=== PATIENT | female | born 1965 | race Caucasian/White ===

== ENCOUNTER 2021-12-26 14:37 | Outpatient (CLI) | payer OTHER, SELFPAY ==
--- NOTE | 2021-12-26 15:00 | CRLHL7_ITS ---
For Patients: As a result of the Century Cures Act, medical imaging exams and procedure reports are released immediately into your electronic medical record. You may view this report before your referring provider. If you have questions, please contact your health care provider. BILATERAL SCREENING MAMMOGRAM WITH COMPUTER-AIDED DETECTION TECHNIQUE: CC and MLO views were obtained. These mammographic images have been obtained using full-field digital technique. These mammographic images were interpreted with the benefit of computer-aided detection. COMPARISON FILM: 11/15/20, 11/01/19, 10/04/18. FINDINGS: There are scattered areas of fibroglandular density IMPRESSION: There is no radiographic evidence for malignancy. ASSESSMENT: BI-RADS Category 1: Negative RECOMMENDATION: Routine screening mammogram in 1 year. A lay language report of this examination will be provided to the patient. Sean Saha M.D. Diagnostic Radiologist [email or web address] BRYAN/Dictated by: Sean Saha MD @ 12/29/2021 8:37:00 AM (Electronically Signed)
== END 2021-12-26 14:38 | disposition home or self-care (01) ==
LOC: MAMMO 14:38
PROVIDERS: PCP Family Medicine; Visit Provider Physician Assistant Medical
DX: Z12.31 Encounter for screening mammogram for malignant neoplasm of breast (principal)
CPT/HCPCS: 77067

== ENCOUNTER 2022-04-23 08:19 | Outpatient (CLI) | payer OTHER, SELFPAY ==
[2022-04-23 15:01] LABS: Albumin* 4.7 g/dL (3.3-5.0); Chloride* 106 mmol/L (96-114); Potassium* 3.8 mmol/L (3.6-5.1)
[2022-04-23 15:03] LABS: Carbon Dioxide* 26 mmol/L (20-32); Cholesterol* 173 mg/dL (90-199); Creatinine* 0.6 mg/dL (0.5-1.5); Estimated Glomerular Filt Rate 105 ml/min
[2022-04-23 15:04] LABS: Aspartate Amino Transferase* 33 U/L (12-35); Bilirubin Total* 1.9 mg/dL (0.1-1.5); Blood Urea Nitrogen* 19 mg/dL (7-30); Calcium* 9.8 mg/dL (8.4-10.6); Glucose* 139 mg/dL (60-115); Total Protein* 7.1 g/dL (6.0-8.3); Triglycerides* 178 mg/dL (40-149)
[2022-04-23 15:05] LABS: HDL Cholesterol* 36 mg/dL (>=50); LDL Cholesterol Calculated 101 mg/dL (<100)
[2022-04-23 15:07] LABS: Sodium* 140 mmol/L (135-149)
[2022-04-23 15:10] LABS: Alanine Aminotransferase* 27 U/L (4-35); Alkaline Phosphatase* 90 U/L (40-150)
[2022-04-23 15:55] LABS: Vitamin D 25 Hydroxy* 30 ng/mL (30-80)
[2022-04-23 16:26] LABS: Hepatitis C Virus Antibody* Negative (Negative)
== END 2022-04-23 08:20 | disposition home or self-care (01) ==
PROVIDERS: PCP Family Medicine; Visit Provider Family Medicine
DX: Z00.00 Encounter for general adult medical examination without abnormal findings (principal); E78.5 Hyperlipidemia, unspecified; R73.03 Prediabetes; Z86.39 Personal history of other endocrine, nutritional and metabolic disease; Z11.59 Encounter for screening for other viral diseases; Z83.49 Family history of other endocrine, nutritional and metabolic diseases
CPT/HCPCS: 80053; 80061; 82306; 84443; 86803

== ENCOUNTER 2022-08-17 13:21 | Outpatient (CLI) | payer OTHER, SELFPAY | END 2022-08-17 13:22 | disposition home or self-care (01) | PROVIDERS: Visit Provider Family Medicine | DX: R73.03 Prediabetes (principal); E78.5 Hyperlipidemia, unspecified; R59.0 Localized enlarged lymph nodes; E88.81 Metabolic syndrome and other insulin resistance; C85.80 Other specified types of non-Hodgkin lymphoma, unspecified site | CPT/HCPCS: 80053; 83615 ==

== ENCOUNTER 2022-08-20 07:00 | Outpatient (CLI) | payer OTHER, SELFPAY ==
--- NOTE | 2022-08-20 07:15 | CRLHL7_ITS ---
For Patients: As a result of the Century Cures Act, medical imaging exams and procedure reports are released immediately into your electronic medical record. You may view this report before your referring provider. If you have questions, please contact your health care provider. Indication: reactive lymph node, h/o lymphoma Technique: Grayscale and color Doppler ultrasound of the right posterior lateral neck soft tissues performed. Comparison: None Findings: There are 2 normal-appearing lymph nodes within the subcutaneous tissues measuring 9 x 5 x 8 millimeters and 4 x 3 x 6 millimeters. Normal internal vascularity and normal central fatty woodrow. Impression: Normal-appearing lymph nodes within the right posterior lateral neck soft tissues. Dictated by Sean Saha MD @ 08/20/2022 11:31:33 AM (Electronically Signed)
--- NOTE | 2022-08-21 12:09 | ONC.NURNOTE ---
Patient called office to ask to be scheduled to see oncology. She was informed that we would need her biopsy back, and proven to be lymphoma prior to seeing patient. She notes that they did not do a biopsy yesterday. Nursing told patient that it was discussed that this was to be done yesterday, and will call PCP office to find out next step for her. Checkout Supervisor looked up ultrasound and it said normal appearing lymph nodes. Checkout Supervisor left message for PCP to call patient with results and next step. [facility] will not be able to see patient without biopsy proven disease.
== END 2022-08-20 07:01 | disposition home or self-care (01) ==
LOC: US 07:01
PROVIDERS: PCP Family Medicine; Visit Provider Family Medicine
DX: C85.80 Other specified types of non-Hodgkin lymphoma, unspecified site (principal); R59.0 Localized enlarged lymph nodes
CPT/HCPCS: 76536

== ENCOUNTER 2022-09-28 12:36 | Outpatient (CLI) | payer OTHER, SELFPAY ==
--- NOTE | 2022-09-28 13:00 | CRLHL7_ITS ---
For Patients: As a result of the Century Cures Act, medical imaging exams and procedure reports are released immediately into your electronic medical record. You may view this report before your referring provider. If you have questions, please contact your health care provider. Indication: FOLLOW UP CERVICAL LYMPH NODE - ENLARGING LYMPH NODE, PT HX OF LYMPHOMA Technique: Grayscale and color Doppler ultrasound of the right side of the neck performed. Comparison: 08/20/2022 Findings: Several normal-appearing lymph nodes are present within the right side of the neck containing normal central fatty woodrow without hypoechoic cortical thickening. The largest lymph node measures 8 x 5 x 7 millimeters. There is no change compared to the prior exam. Impression: Stable subcentimeter right-sided lymph nodes. No indication for biopsy. Dictated by Sean Saha MD @ 09/28/2022 1:50:05 PM (Electronically Signed)
== END 2022-09-28 12:37 | disposition home or self-care (01) ==
LOC: US 12:37
PROVIDERS: PCP Family Medicine; Visit Provider Family Medicine
DX: C85.80 Other specified types of non-Hodgkin lymphoma, unspecified site (principal); R59.0 Localized enlarged lymph nodes
CPT/HCPCS: 76536

== ENCOUNTER 2023-01-07 09:54 | Outpatient (CLI) | payer OTHER, SELFPAY ==
--- NOTE | 2023-01-07 10:15 | CRLHL7_ITS ---
For Patients: As a result of the Century Cures Act, medical imaging exams and procedure reports are released immediately into your electronic medical record. You may view this report before your referring provider. If you have questions, please contact your health care provider. BILATERAL SCREENING MAMMOGRAM WITH COMPUTER-AIDED DETECTION TECHNIQUE: CC and MLO views were obtained. These mammographic images have been obtained using full-field digital technique. These mammographic images were interpreted with the benefit of computer-aided detection. COMPARISON FILM: 12/26/21, 11/15/20, 11/01/19. FINDINGS: There are scattered areas of fibroglandular density IMPRESSION: There is no radiographic evidence for malignancy. ASSESSMENT: BI-RADS Category 1: Negative RECOMMENDATION: Routine screening mammogram in 1 year. A lay language report of this examination will be provided to the patient. Sean Saha M.D. Diagnostic Radiologist [email or web address] ROSANGELA/monica Transcribed: 2:06 prafael anderson/Dictated by: Sean Saha MD @ 01/07/2023 11:26:00 AM (Electronically Signed)
== END 2023-01-07 09:55 | disposition home or self-care (01) ==
LOC: MAMMO 09:56
PROVIDERS: PCP Family Medicine; Visit Provider Family Medicine
DX: Z12.31 Encounter for screening mammogram for malignant neoplasm of breast (principal)
CPT/HCPCS: 77067

== ENCOUNTER 2023-09-08 13:27 | Outpatient (CLI) | payer OTHER, SELFPAY ==
--- OUTSIDE RECORDS SUMMARY | 2023-09-08 13:32 | XMS_ITS | Clinical Summary ---
Author Organization [facility] Address [place], [place] [address] Care Team Providers Care Student Ministry Pastor Name Role Phone Aquiles [facility] Primary Care Provider Unavailabl e Allergies No known active allergies Medications Medication Sig Dispensed Refills Start Date End Date Status ALBUTEROL SULFATE HFA 90 MCG/ACTUATION AEROSOL INHALER inhale 1 puff by inhalation route every 4-6 hours as needed 1 08/29/2007 Active omeprazole (PRILOSEC) 20 mg capsule Take 20 mg by mouth once daily before a meal. Active fluticasone (50 mcg per actuation) nasal solution (FLONASE) Inhale 50 Sprays in the nostril(s) once daily. 07/22/2016 Active HYDROcodone-acetamin ophen, 5-325 mg, (NORCO) per tablet Take 5 tablets by mouth every 4 hours if needed 08/06/2016 Active lovastatin (MEVACOR) 20 mg tablet Take 20 mg by mouth once daily. 06/12/2016 Active cholestyramine-sucro se 4 G per scoop (QUESTRAN) 4 gram powder Take 4 g by mouth once daily. 06/30/2016 Active Active Problems Problem Noted Date Diagnosed Date Unspecified asthma(493.90) 08/07/2005 ALLERGIC CONJUNCTIVITIS 08/01/2002 CALCULUS, URETER 01/18/2001 INFECTION, URINARY TRACT NOS 01/18/2001 RHINITIS, ALLERGIC NOS 09/02/2000 HEADACHE 09/02/2000 Resolved Problems Problem Noted Date Diagnosed Date Resolved Date ASTHMA NOS 09/02/2000 08/07/2005 Immunizations Name Administration Dates Next Due Td (Age >=7 Years) 05/12/2002,09/16/1990 Family History Medical History Relation Name Comments Asthma Brother 1 Other Brother 2 Allergies Hypertension Father Other Father COPD Cancer Mother Angiosarcoma Asthma Sister 1 Other Sister 2 Allergies Other Sister 3 Renal calculi Relation Name Status Comments Brother 1 Brother 2 Father (Age 66) Unknown Mother (Age 61) Angiosarco ma Sister 1 Sister 2 Sister 3 Social History Tobacco Use Types Packs/Day Years Used Date Smoking Tobacco: Never Alcohol Use Standard Drinks/Week Comments Yes 0 (1 standard drink = 0.6 oz pur e alcohol) rare, 1/4 months Sex and Gender Information Value Date Recorded Sex Assigned at Not on file Gender Identity Not on file Sexual Orientation Not on file Obstetrics History Para Term AB IAB SAB Ectopic Multiple Livin g Live Births 3 3 3 0 0 0 0 0 3 Date Outcome GA Total Labor Labor/2nd/3rd Weight Sex Delivery Anes PTL Katt A1 A5 Name Cl in Term Term Term Last Filed Vital Signs Vital Sign Reading Time Taken Comments Blood Pressure 99/69 09/07/2016 1:45 PM CDT Pulse 73 09/07/2016 1:45 PM CDT Temperature 37.1 ??C (98.7 ??F) 08/10/2016 9:22 AM CD T Respiratory Rate 16 05/28/2010 5:15 PM TURBINE SUBASSEMBLER Oxygen Saturation 95% 05/28/2010 5:15 PM TURBINE SUBASSEMBLER Inhaled Oxygen Concentration - - Weight 66.3 kg (146 lb 3.2 oz) 09/07/2016 1:45 P M CDT Height 154.9 cm (5' 1) 09/07/2016 1:45 PM CDT Body Mass Index 27.62 09/07/2016 1:45 PM CDT Plan of Treatment Health Maintenance Due Date Last Done Comments Tdap 1976 Depression screening for age 12+ 1977 HIV for age 15-65 1980 Hepatitis C screening for ag e 18-79 07/22/1983 Pap test for age 21-65 12/27/2007 5, 12/26/2004, 11/28/2001 Colonoscopy through age 75 2010 Lipids for age 45-75 2010 01/02/2005 Mammogram for age 45-75 2010 10/19/2003 Tetanus booster 05/12/2012 05/12/2002, 09/16/1990 Zoster (shingles) series for age 50+ (1 of 2) 07/22/2015 BMI (ht and wt on same day) for age 18+ 09/07/2017 09/07/2016 COVID-19 vaccine series (2022-24 season) 2022 Influenza for age 50-64 12/19/2023 Pneumococcal series for age 6-64 Aged Out No longer eligible b ased on patient's age to complete this topic Medical Devices Implanted Type Area Manager Banquet Device Identifier Shelf Expiration Date Model / Serial / Lot Stent Prcflx [id number] Hydpls - [id number] Implanted:Qty: 1 on 08/19/2006 at [facility] Left: Ureter [facility] Urology [id number] / / [id number] Description:EXP Procedures Procedure Name Priority Date/Time Associated Diagnosis Comments LIPID PANEL Timed 01/02/2005 11:05 AM CDT GYNECOLOGICAL PANEL Timed 12/26/2004 1 2:00 PM CDT XR MAMMO BILATERAL DIAGNOSTIC (IA) Timed 10/19/2003 8:58 AM CDT RT BRST MASS from Last 3 Months or Most Recently Relevant to Health Maintenance Results * (ABNORMAL) LIPID PANEL (01/02/2005 11:05 AM CDT) CHOLESTEROL,TOTAL 179 110 - 199 mg/dL [facility] TRIGLYCERIDES 223(H) 40 - 149 mg/dL [facility] HDL CHOLESTEROL 34(L) >40 mg/dL [facility] CHOL/HDL RATIO 5.27(H) <4.51 [facility] LDL CHOLESTEROL 100 <131 mg/dL [facility] PATIENT STATUS Fasting [facility] 01/02/2005 11:0 5 AM CDT 01/02/2005 4:58 PM CDT Yoly Richey MD CHEMISTRY [facility] INTERNAL ZIP [address] [address] * GYNECOLOGICAL PANEL (12/26/2004 12:00 PM CDT) CYTOLOGY ??CYTOPATHOLOGY REPORT ??[facility] [address] [address] ? Status: Final Report ?[id number] ?? CLINICAL INFORMATION ?Reason for Visit ?: Routine ?LMP ? : 12-20-2004 ?Previous PAP Test ? : Yes ?Previous PAP Date ? : 09-02-2000 ?Previous PAP Dx ? : Negative ?Previous Colposcopy/Bx: None ?Hormone Usage ? : Not given ?Additional Data ? : Not given ?HPV Request ? : Reflex HPV test if PAP Dx ASCUS ?? SPECIMEN SOURCE ?: Cervical/vaginal thin, screening ?? SPECIMEN ADEQUACY ?: Satisfactory for evaluation Endocervical ?component present. ?? * ?? INTERPRETATION/RES ULT: ?Negative for intraepithelial lesion or malignancy. ?? * ?? Cytology 1st Screener : ??kek ?? Signed by: ? kek ?? NOTE: The Pap test is a screening technique, not a diagnostic ?? procedure. It is used primarily to screen for squamous cancers and ?? precursor lesions. Published studies have shown that it is subject to ?? both false negative and false positive results. The pap test should ?? not be used as the sole means to diagnose or exclude pre-malignant and ?? malignant lesions. ?? COLLECTED: 12/26/04 ?? ACCESSIONED: 12/31/04 ?? SIGNED: 01/07/05 [facility] 12/26/2004 12:0 0 PM CDT 12/31/2004 4:23 PM CDT Yoly Richey MD PATHOLOGY/CY TOLOGY [facility] INTERNAL ZIP [address] [address] [place] [address] * BC DIAGNOSTIC BILATERAL MAMMO (10/19/2003 8:58 AM CDT) Anatomical Region Laterality Modality BREASTS, Breast Left, Breast Right Bilateral Mammography 10/19/2003 8:40 AM CDT Narrative 10/22/2003 2:05 PM CDT SEE CORE BIOPSY FOR COMBINED REPORT ASSESSMENT: ACR CATEGORY 4, SUSPICIOUS Yoly Richey MD MAMMO from Last 3 Months or Most Recently Relevant to Health Maintenance Advance Directives * Full Code (Latest Code Status on File) Date Activated Date Inactivated Comments 05/28/2010 1:43 PM 05/29/2010 2:09 AM * Full Code Date Activated Date Inactivated Comments 08/19/2006 11:46 AM 08/19/2006 7:47 PM Care Teams Student Ministry Pastor Relationship Specialty Start Date End Date Suhas Kwan PCP - General 07/26/17
== END 2023-09-08 13:28 | disposition home or self-care (01) ==
PROVIDERS: PCP Family Medicine; Visit Provider Physician Assistant Medical
DX: Z00.00 Encounter for general adult medical examination without abnormal findings (principal); E78.2 Mixed hyperlipidemia; R73.03 Prediabetes; E55.9 Vitamin D deficiency, unspecified; Z13.0 Encounter for screening for diseases of the blood and blood-forming organs and certain disorders involving the immune mechanism; Z11.59 Encounter for screening for other viral diseases
CPT/HCPCS: 80053; 80061; 82043; 82570; 82607; 84443; 86703; 86803

== ENCOUNTER 2023-09-21 07:33 | Outpatient (CLI) | payer OTHER, SELFPAY ==
--- OUTSIDE RECORDS SUMMARY | 2023-09-21 07:35 | XMS_ITS | Continuity of Care Document ---
Author Organization [facility] Address [address] [address] [place] [address] Phone Care Team Providers Care Software Computer Specialist Name Role Phone Unavailable Unavailable Unavailable Procedures Procedure Date Ercp; W/endo Retro Remov Stone Outpt May Ercp; W/sphincterotomy/papillo Outpt May Advance Directives Directive Yes / No Effective Date File Name No Information Encounters Encounter Description Practice Location Reason(s) For Visit Diagnoses Date Provider Providers Copied on Encounter [facility], [address] [address], [place], [place], [id number], [place] tel:[phone] [facility] No Information No Information [facility], [address] [address], [place], [place], [id number], [place] tel:[phone] [facility] Choledocholithi asis 1 No Information Referring Provider: Yoly Richey MD [place], [address] [place], [address]. tel:[phone] Family History Family Member Type Diagnosis Age At Onset No Information Payers Payer name Insurance type Covered libertarian ID Authoriza tion(s) [employer] [facility] [id number] Social History Type Description Quantity Date Captured Comments Sex Female Smoking Status No Information Chief Complaint And Reason For Visit No Information Reason For Referral Reason For Referral No Information History Of Present Illness Encounter Date Complaint History Of Prese nt Illness No Information Functional Status Date Functional Assessmen t No Information Instructions Date Instruction Additional Infor mation No Information Assessments Type Assessment Date No Information Patient Care Teams Name Effective Dates (start - stop) Status Members No Information
--- OUTSIDE RECORDS SUMMARY | 2023-09-21 07:35 | XMS_ITS | Clinical Summary ---
Author Organization [employer] [facility] Address [place], [place] [address] Care Team Providers Care Station Mechanic Helper Name Role Phone [facility] [place] Care Provider Unavailabl e Allergies No known active allergies Medications Medication Sig Dispensed Refills Start Date End Date Status ALBUTEROL SULFATE HFA 90 MCG/ACTUATION AEROSOL INHALER inhale 1 puff by inhalation route every 4-6 hours as needed 1 02 08/29/2007 Active omeprazole (PRILOSEC) 20 mg capsule [...] T Respiratory Rate 16 05/28/2010 5:15 PM OCCUPATIONAL HYGIENIST Oxygen Saturation 95% 05/28/2010 5:15 PM OCCUPATIONAL HYGIENIST Inhaled Oxygen Concentration - - Weight 66.3 [...] this topic Medical Devices Implanted Type Area Brass Chaser Device Identifier Shelf Expiration Date Model / Serial / Lot Stent Prcflx [id number] Hydpls - [id number] Implanted:Qty: 1 on 08/19/2006 at [facility] Left: Ureter [facility] Urology [id number] / / [id number] Description:EXP Procedures Procedure Name Priority Date/Time Associated Diagnosis Comments LIPID PANEL Timed 01/02/2005 11:05 AM CDT GYNECOLOGICAL PANEL Timed 12/26/2004 1 2:00 PM CDT XR MAMMO BILATERAL DIAGNOSTIC (IA) Timed 10/19/2003 8:58 AM CDT RT BRST MASS from Last 3 Months or Most Recently Relevant to Health Maintenance Results * (ABNORMAL) LIPID PANEL (01/02/2005 11:05 AM CDT) CHOLESTEROL,TOTAL 179 110 - 199 mg/dL [facility] TRIGLYCERIDES 223(H) 40 - 149 mg/dL [facility] HDL CHOLESTEROL 34(L) >40 mg/dL [facility] CHOL/HDL RATIO 5.27(H) <4.51 [facility] LDL CHOLESTEROL 100 <131 mg/dL [facility] PATIENT STATUS Fasting [facility] 01/02/2005 11:0 5 AM CDT 01/02/2005 4:58 PM CDT Yoly Richey MD CHEMISTRY [facility] INTERNAL ZIP [address] [address] * GYNECOLOGICAL PANEL (12/26/2004 12:00 PM CDT) CYTOLOGY ??CYTOPATHOLOGY REPORT ??[facility] [employer] [facility] [address] [address] ? Status: Final Report ?[id number] ?? CLINICAL INFORMATION ?Reason for Visit ?: [...] 12/26/04 ?? ACCESSIONED: 12/31/04 ?? SIGNED: 01/07/05 [facility] 12/26/2004 12:0 0 PM CDT 12/31/2004 4:23 PM CDT Yoly Richey MD PATHOLOGY/CY TOLOGY [facility] INTERNAL ZIP [address] [address] [place] [address] * BC DIAGNOSTIC BILATERAL MAMMO (10/19/2003 8:58 [...] 11:46 AM 08/19/2006 7:47 PM Care Teams Station Mechanic Helper Relationship Specialty Start Date End Date Suhas Kwan PCP - General 07/26/17
--- NOTE | 2023-09-21 08:00 | CRLHL7_ITS ---
For Patients: As a result of the Century Cures Act, medical imaging exams and procedure reports are released immediately into your electronic medical record. You may view this report before your referring provider. If you have questions, please contact your health care provider. INDICATION: abnormal level serum enzymes COMPARISON: none TECHNIQUE: Real time ngo scale imaging and color Doppler analysis was performed of the right upper quadrant. FINDINGS: The patient`s liver measures 17.4 cm and has diffusely increased echogenicity. There is a normal appearance of the hepatic IVC and proximal abdominal aorta. There is no evidence of ascites. The gallbladder is absent. The common bile duct is of normal size and measures 2.9 mm in diameter at the level of the martha hepatis. The visualized pancreas appears normal. There is no evidence of a stone or hydronephrosis within the right kidney. The right kidney measures 9.0 cm in length. IMPRESSION: Diffuse hepatic steatosis. Status post cholecystectomy. No biliary obstruction. Dictated by Sean Saha MD @ 09/21/2023 12:49:20 PM (Electronically Signed)
== END 2023-09-21 07:34 | disposition home or self-care (01) ==
LOC: US 07:33
PROVIDERS: PCP Family Medicine; Visit Provider Physician Assistant Medical
DX: R74.8 Abnormal levels of other serum enzymes (principal); K76.0 Fatty (change of) liver, not elsewhere classified
CPT/HCPCS: 76705

== ENCOUNTER 2023-12-16 08:49 | Outpatient (CLI) | payer OTHER, SELFPAY ==
--- OUTSIDE RECORDS SUMMARY | 2023-12-18 13:15 | XMS_ITS | Clinical Summary ---
Author Organization [facility] [facility] Address [place], [place] [address] Care Team Providers Care Associate School Psychologist Name Role Phone Aquiles [facility] [place] Care Provider Unavailabl e Allergies No [...] Outcome GA Total Labor Labor/2nd/3rd Weight Sex Type Anes PTL Katt A1 A5 Name Clin Term Term Term Last Filed Vital Signs Vital Sign Reading Time Taken Comments Blood Pressure 99/69 09/07/2016 1:45 PM CDT Pulse 73 09/07/2016 1:45 PM CDT Temperature 37.1 ??C (98.7 ??F) 08/10/2016 9:22 AM CD T Respiratory Rate 16 05/28/2010 5:15 PM PAPER MAKER Oxygen Saturation 95% 05/28/2010 5:15 PM PAPER MAKER Inhaled Oxygen Concentration - - Weight 66.3 [...] this topic Medical Devices Implanted Type Area Global Compensation Director Device Identifier Shelf Expiration Date Model / Serial / Lot Stent Prcflx [id number] Hydpls - [id number] Implanted:Qty: 1 on 08/19/2006 at [facility] Left: Ureter [facility] Urology [id number] / / [id number] Description:EXP Procedures Procedure Name Priority Date/Time Associated Diagnosis Comments LIPID PANEL Timed 01/02/2005 11:05 AM CDT GYNECOLOGICAL PANEL Timed 12/26/2004 1 2:00 PM CDT XR MAMMO BILATERAL DIAGNOSTIC (IA) Timed 10/19/2003 8:58 AM CDT RT BRST MASS from Last 3 Months or Most Recently Relevant to Health Maintenance Results * (ABNORMAL) LIPID PANEL (01/02/2005 11:05 AM CDT) CHOLESTEROL,TOTAL 179 110 - 199 mg/dL [facility] TRIGLYCERIDES 223(H) 40 - 149 mg/dL [facility] HDL CHOLESTEROL 34(L) >40 mg/dL [facility] CHOL/HDL RATIO 5.27(H) <4.51 [facility] LDL CHOLESTEROL 100 <131 mg/dL [facility] PATIENT STATUS Fasting [facility] 01/02/2005 11:0 5 AM CDT 01/02/2005 4:58 PM CDT Yoly Richey MD CHEMISTRY [facility] INTERNAL ZIP [address] [address] * GYNECOLOGICAL PANEL (12/26/2004 12:00 PM CDT) CYTOLOGY ??CYTOPATHOLOGY REPORT ??[facility] [address] [address] ? Status: Final Report ?[id number] ?? CLINICAL INFORMATION ?Reason for Visit ?: [...] 12/26/04 ?? ACCESSIONED: 12/31/04 ?? SIGNED: 01/07/05 [facility] 12/26/2004 12:0 0 PM CDT 12/31/2004 4:23 PM CDT Yoly Richey MD PATHOLOGY/CY TOLOGY [facility] INTERNAL ZIP [address] [place] [address] * BC DIAGNOSTIC BILATERAL MAMMO (10/19/2003 8:58 [...] 11:46 AM 08/19/2006 7:47 PM Care Teams Associate School Psychologist Relationship Specialty Start Date End Date Suhas Kwan PCP - General 07/26/17
== END 2023-12-16 08:50 | disposition home or self-care (01) ==
LOC: NFLDREF 12-18 13:14
PROVIDERS: PCP Physician Assistant Medical; Visit Provider Physician Assistant Medical
DX: E11.9 Type 2 diabetes mellitus without complications (principal); E78.2 Mixed hyperlipidemia; Z79.84 Long term (current) use of oral hypoglycemic drugs
CPT/HCPCS: 80053; 80061; 82043; 82570

== ENCOUNTER 2024-01-02 16:45 | Emergency (ER) | payer OTHER, SELFPAY ==
[2024-01-02 16:49] VITALS: BP 97/64; PULSE 90; RESP 18; TEMP 35.7; O2SAT 95; BMI 26.1
--- NOTE | 2024-01-02 17:03 | CRLHL7_ITS ---
For Patients: As a result of the Century Cures Act, medical imaging exams and procedure reports are released immediately into your electronic medical record. You may view this report before your referring provider. If you have questions, please contact your health care provider. INDICATION: Left flank pain with history of kidney stones. TECHNIQUE: CT abdomen and pelvis without contrast. COMPARISON: [address] without contrast. FINDINGS: Lower chest: Unremarkable. Liver: Unremarkable. Spleen: Unremarkable. Pancreas: Unremarkable. Gallbladder and bile ducts: Cholecystectomy clips. Kidneys: Large pelvic calculus on the left is partial staghorn. Greatest length 22 mm. Greatest width 8 mm. Nonobstructing calyceal calculi in the lower pole. Three stones each measure about 2-3 mm. No ureteral calculi. Decompressed urinary bladder. Normal right kidney and collecting system with no nephrolithiasis. Adrenal glands: Unremarkable. GI tract: A few diverticula of the colon. Moderate amount of stool in the slightly redundant colon. Appendix is normal. Vascular structures: Unremarkable. Lymph nodes: Unremarkable. Miscellaneous: Unremarkable. No free air or significant free fluid. Pelvic Organs: Absent uterus likely surgically. Bones: Unremarkable for age. IMPRESSION: Large nonobstructing calculus of the left renal pelvis. Several small nonobstructing calculi at the lower pole left kidney. Please note that all CT scans at this facility use dose modulation, iterative reconstruction, and/or weight-based dosing when appropriate to reduce radiation dose to as low as reasonably achievable. Dictated by Daniel Forte MD @ 01/02/2024 5:49:53 PM (Electronically Signed)
[2024-01-02 17:12] LABS: Appearance Urine Clear (Clear); Bilirubin Urine Negative (Negative); Blood Urine 3+ (Negative); Color Urine Yellow (Yellow); Glucose Urine Negative (Negative); Ketones Urine Trace (Negative); Leukocyte Esterase Urine 1+ (Negative); Nitrite Urine Negative (Negative); Protein Urine 2+ (Negative); Specific Gravity Urine >= 1.030 (1.000-1.030); pH Urine 5.5 (5.0-8.5)
--- NOTE | 2024-01-02 17:13 | ED.GENADULT ---
HPI - General Adult General Chief complaint: Flank Pain Stated complaint: kidney stone Time Seen by Provider: 01/02/24 16:50 Source: patient Mode of arrival: ambulatory Limitations: no limitations History of Present Illness HPI narrative: Patient is a 58-year-old woman who comes in with left flank pain which she says has been there for about 2 and half weeks. She says it was just a mild ache, she would occasionally take ibuprofen and it would go away. Over the past couple of days however she has had more significant pain associated with some nausea though no vomiting. Right now, she does not have severe pain. She says she has thought about going to the clinic, but she said by the time she got an appointment and then got another appointment for imaging it just was such a drawn out process that she decided to come to the ER instead. She has not had any fevers or chills, no dysuria, hematuria frequency or urgency. She has a history of kidney stones on the right which is what made her think that this might be related to a kidney stone. Pain is not worse with movement, does not radiate. She does not smoke. She has remote history of cancer, which she says she is cured from. Also has a history of diabetes. She does not smoke or drink. Related Data Home Medications ?Medication ?Instructions ?Recorded ?Confirmed cholecalciferol (vitamin D3) 50 50 mcg PO QDAY 04/23/22 09/30/23 mcg (2,000 unit) capsule Previous Rx's ?Medication ?Instructions ?Recorded blood-glucose meter (Blood Glucose #1 ea 03/17/22 Monitoring kit) albuterol sulfate 90 mcg/actuation 2 puff inhalation Q6H PRN 07/16/22 aerosol inhaler (Ventolin HFA) shortness of breath or wheezing #8.5 grams blood sugar diagnostic (Accu-Chek #100 strips 09/08/23 Guide test strips) lancets (Accu-Chek Fastclix Lancet #200 ea 09/08/23 Drum) metformin 500 mg tablet,extended 2,000 mg (4 x 500 mg) PO QDAY #360 09/08/23 release 24 hr tabs omeprazole 20 mg capsule,delayed 20 mg PO QDAY #90 caps 09/08/23 release rosuvastatin 10 mg tablet 10 mg PO .qhs #90 tabs 10/04/23 Allergies Allergy/AdvReac Type Severity Reaction Status Date / Time No Known Drug Allergies Allergy Verified 09/30/23 11:13 Review of Systems Status of ROS: Reports: 10 or more systems reviewed and unremarkable except as noted in History and below [facility] Medical History Prediabetes ?R73.03 - Prediabetes (ICD-10) History of vitamin D deficiency ?Z86.39 - Personal history of other endocrine, nutritional and metabolic disease (ICD-10) Shingles ?B02.9 - Zoster without complications (ICD-10) Mild intermittent asthma ?J45.20 - Mild intermittent asthma, uncomplicated (ICD-10) Carpal tunnel syndrome (12/08/12) ?G56.00 - Carpal tunnel syndrome, unspecified upper limb (ICD-10) Calculus of kidney ?N20.0 - Calculus of kidney (ICD-10) Metabolic syndrome ?E88.81 - Metabolic syndrome (ICD-10) Surgical History Hx of cholecystectomy ?Z90.49 - Acquired absence of other specified parts of digestive tract (ICD-10) Status post right breast lumpectomy (05/26/10) ?Z98.890 - Other specified postprocedural states (ICD-10) History of repair of rectocele ?Z98.890 - Other specified postprocedural states (ICD-10) History of hysterectomy (05/26/10) ?Z90.710 - Acquired absence of both cervix and uterus (ICD-10) History of colonoscopy ?Z98.890 - Other specified postprocedural states (ICD-10) Family History Family/Other No problems noted. Father High blood pressure Mother Thyroid disease Angiosarcoma Brother Thyroid disease Type 2 diabetes mellitus Sister Type 2 diabetes mellitus Social History Narrative: . 3 adult children, raising their grandson- 17yo the last 3 - 4 years; her daughter ran off tennese. never-smoker Alcohol- 1-2 shots a week Denies recreational drugs Exercise- yard work Smoking Status: Never smoker How often do you have a drink containing alcohol: never AUDIT-C Alcohol total score: 0 Non-prescribed substance use: denies use Little interest or pleasure in doing things: not at all Feeling down, depressed, or hopeless: not at all Exam Narrative: Exam Narrative: Vital signs as noted above. In general, an alert, well-appearing patient. She looks comfortable. Head: Normocephalic, atraumatic. Eyes: Pupils are equal reactive. Extraocular movements are full. Conjunctivae are normal. ENT: Mucous membranes are moist. Throat is normal. Neck: Supple without lymphadenopathy. Heart: Regular rate and rhythm. No murmur or rub. Lungs: Clear bilaterally. No increased work of breathing, crackles or wheezes. Abdomen: Soft and nontender. No organomegaly. No CVA tenderness. Extremities: Well perfused. No edema. No calf tenderness. Pulses intact. Neurologic: Patient is alert and oriented to person and place. Speech is fluent. Face is symmetric. Moves all extremities equally. Affect: Normal. Skin: Warm and dry. No rash or lesion. Const: Vital Signs, click to edit/add: Vital Signs - 24 hr 01/02/24 16:49 Temperature 96.3 F L Pulse Rate [Pulse Oximeter] 90 Respiratory Rate 18 Blood Pressure [Ri ght Upper Arm] 97/64 Pulse Oximetry 95 Oxygen Delivery Me thod Room Air Documenting provider has reviewed patient's vital signs: yes Course Course ED Course: Given the duration of her pain I do think it is reasonable to do CT scan evaluate for a kidney stone. UA pending as well. She declines the need for anything for pain right now. CT scan by my review showed a large stone in the renal pelvis, several smaller stones in the left kidney, no significant hydronephrosis. Final radiology read as follows:FINDINGS: Lower chest: Unremarkable. Liver: Unremarkable. Spleen: Unremarkable. Pancreas: Unremarkable. Gallbladder and bile ducts: Cholecystectomy clips. Kidneys: Large pelvic calculus on the left is partial staghorn. Greatest length 22 mm. Greatest width 8 mm. Nonobstructing calyceal calculi in the lower pole. Three stones each measure about 2-3 mm. No ureteral calculi. Decompressed urinary bladder. Normal right kidney and collecting system with no nephrolithiasis. Adrenal glands: Unremarkable. GI tract: A few diverticula of the colon. Moderate amount of stool in the slightly redundant colon. Appendix is normal. Vascular structures: Unremarkable. Lymph nodes: Unremarkable. Miscellaneous: Unremarkable. No free air or significant free fluid. Pelvic Organs: Absent uterus likely surgically. Bones: Unremarkable for age. IMPRESSION: Large nonobstructing calculus of the left renal pelvis. Several small nonobstructing calculi at the lower pole left kidney. Urinalysis did show 25-50 red cells and 50-100 white blood cells. Clinically, she does not have signs or symptoms of systemic infection. She is not febrile, tachycardic, hypotensive. I did check some basic blood work, her white count is normal at 9.6, normal diff, her lactate is mildly elevated at 2.2 but CRP is less than 0.5, and I think in the absence of any other findings of sepsis my suspicion is low. Stone is nonobstructing. I have reviewed all this with her. I would like her to be seen by urology to determine whether they feel this stone should come out. In the meantime I am going to put her on Keflex, prescribed from [facility]. Reviewed warning signs to return such as fevers, chills, vomiting, severe uncontrolled pain. She did request stronger pain medication as needed at home, given oxycodone 8 tablets from [facility]. Vital Signs Vital signs: Initial Vital Signs Temperature 96.3 F L 01/02/24 16:49 Temperature Source Temporal Artery Scan 01/02/24 16:49 Pulse Rate 90 01/02/24 16:49 Respiratory Rate 18 01/02/24 16:49 Blood Pressure 97/64 01/02/24 16:49 Blood Pressure Mean 75 01/02/24 16:49 Pulse Oximetry 95 01/02/24 16:49 Oxygen Delivery Method Room Air 01/02/24 16:49 Vital Signs Temperature 96.3 F L 01/02/24 16:49 Pulse Rate 90 01/02/24 16:49 Respiratory Rate 18 01/02/24 16:49 Blood Pressure 97/64 01/02/24 16:49 Pulse Oximetry 95 01/02/24 16:49 Oxygen Delivery Method Room Air 01/02/24 16:49 Temperature 96.3 F L 01/02/24 16:49 Pulse Rate 90 01/02/24 16:49 Respiratory Rate 18 01/02/24 16:49 Blood Pressure 97/64 01/02/24 16:49 Pulse Oximetry 95 01/02/24 16:49 Oxygen Delivery Method Room Air 01/02/24 16:49 Medical Decision Making Lab Data Labs: Lab Results 01/02/24 01/02/24 Range/Units 17:03 17:45 WBC 9.59 (4.50-11.00) K/uL RBC 5.29 H (4.00-5.20) m/uL Hgb 14.6 (12.0-16.0) gm/dL Hct 42.4 (33.0-51.0) % MCV 80 (80-100) fL MCH 28 (26-34) pg MCHC 34 (32-36) gm/dL RDW Coeff of Yael 13.6 (11.5-15.5) % Plt Count 212 (140-440) K/uL Neut % (Auto) 61.2 (42.0-72.0) % Lymph % (Auto) 28.8 (20-44) % [place] % (Auto) 7.2 (0.0-11.0) % Eos % (Auto) 2.3 (0.0-7.0) % Baso % (Auto) 0.3 (0.0-3.0) % Neut # (Auto) 5.87 (1.7-7.0) K/uL Lymph # (Auto) 2.76 (0.90-2.90) K/uL [place] # (Auto) 0.70 (0.00-0.90) K/UL Eos # (Auto) 0.22 (0.00-0.50) K/uL Baso # (Auto) 0.03 (0.00-0.30) K/uL Abs Immat Gran (auto) 0.02 (0.00-0.30) K/uL Imm/Tot Granulo (auto) 0.2 % Sodium 139 (135-149) mmol/L Potassium 3.6 (3.6-5.1) mmol/L Chloride 104 (96-114) mmol/L Carbon Dioxide 23 (20-32) mmol/L Anion Gap 12 (7-15) mEq/L BUN 19 (7-30) mg/dL Creatinine 0.8 (0.5-1.5) mg/dL Estimated Creat Clear 57.84 Estimated GFR 85 ml/min Glucose 110 (60-115) mg/dL Lactate 2.2 H (0.5-1.9) mmol/L Calcium 9.5 (8.4-10.6) mg/dL C-Reactive Protein < 0.5 L (0.5-1.0) mg/dL Urine Color Yellow (Yellow) Urine Appearance Clear (Clear) Urine pH 5.5 (5.0-8.5) Ur Specific [place] >= 1.030 (1.000-1.030) Urine Protein 2+ A (Negative) Urine Glucose (UA) Negative (Negative) Urine Ketones Trace A (Negative) Urine Blood 3+ A (Negative) Urine Nitrite Negative (Negative) Urine Bilirubin Negative (Negative) Urine Urobilinogen 1.0 (0.2-1.0) Ur Leukocyte Esterase 1+ A (Negative) Urine RBC 25-50 A (0-2) Urine WBC 50-100 A (0-5) Ur Squamous Epith Cells Moderate A (None-Few) Urine Bacteria Moderate A (None) Urine Mucus Moderate A (None) Discharge Plan Discharge Clinical Impression: Kidney stone on left side Patient Disposition: Home, Self-Care Condition: Stable Instructions: Kidney Stones (ED) Additional Instructions: You have a large stone which has technically not completely left the kidney, it is not causing obstruction. You do have evidence of possibly infected urine and that may be contributing to her symptoms as well. For now, we will start you on antibiotics. I would recommend urology follow-up to get thier advice as to whether not you need treatment for this stone. [place] [facility] [phone] to schedule. If at any point you are feeling sicker, have severe uncontrolled pain, vomiting, fevers, chills or other worsening, return to the emergency department right away. Prescriptions: No Action cholecalciferol (vitamin D3) 50 mcg (2,000 unit) capsule 50 mcg PO QDAY omeprazole 20 mg capsule,delayed release(DR/EC) 20 mg PO QDAY Qty: 90 3RF (DME) Accu-Chek Guide test strips Strip See Rx Instructions .ROUTE .COMPLEX Qty: 100 3RF Dose Instruction: USE TO TEST BLOOD SUGAR DAILY Rx Instructions: USE TO TEST BLOOD SUGAR DAILY (DME) lancets [Accu-Chek Fastclix Lancet Drum] Misc See Rx Instructions .Route Qty: 200 3RF Rx Instructions: once daily -As directed metformin 500 mg tablet extended release 24 hr 2,000 mg PO QDAY Qty: 360 3RF Rx Instructions: Take 4 tablets once daily for diabetes (DME) blood-glucose meter [Blood Glucose Monitoring] Kit See Rx Instructions .Route Qty: 1 0RF Rx Instructions: As directed albuterol sulfate [Ventolin HFA] 90 mcg/actuation HFA aerosol inhaler 2 puff inhalation Q6H PRN (Reason: shortness of breath or wheezing) Qty: 8.5 12RF Rx Instructions: dispense whichever albuterol inhaler is covered rosuvastatin 10 mg tablet 10 mg PO .qhs Qty: 90 0RF Follow Up/Referrals: Georgette Rojas PA-C [Primary Care Provider] - Stand Alone Forms: MyHealth Info Instructions
[2024-01-02 17:23] LABS: Bacteria Urine Moderate; Mucus Urine Moderate; RBC Urine 25-50 (0-2); Squamous Epithelial Cell Urine Moderate (None-Few); WBC Urine 50-100 (0-5)
[2024-01-02 17:50] LABS: Lactate* 2.2 mmol/L (0.5-1.9)
[2024-01-02 17:51] LABS: Basophils Absolute Auto 0.03 K/uL (0.00-0.30); Basophils Percent Auto 0.3 % (0.0-3.0); Eosinophils Absolute Auto 0.22 K/uL (0.00-0.50); Eosinophils Percent Auto 2.3 % (0.0-7.0); Hematocrit 42.4 % (33.0-51.0); Hemoglobin* 14.6 gm/dL (12.0-16.0); Immature Granulocytes Abs Auto 0.02 K/uL (0.00-0.30); Immature Granulocytes Pct Auto 0.2 %; Lymphocytes Absolute Auto 2.76 K/uL (0.90-2.90); Lymphocytes Percent Auto 28.8 % (20-44); Mean Corpuscular HGB Conc 34 gm/dL (32-36); Mean Corpuscular Hemoglobin 28 pg (26-34); Mean Corpuscular Volume 80 fL (80-100); Monocytes Percent Auto 7.2 % (0.0-11.0); Neutrophils Absolute Auto 5.87 K/uL (1.7-7.0); Neutrophils Percent Auto 61.2 % (42.0-72.0); Platelet Count* 212 K/uL (140-440); RDW Coefficient of Variation % 13.6 % (11.5-15.5); Red Blood Count 5.29 m/uL (4.00-5.20); White Blood Count* 9.59 K/uL (4.50-11.00)
[2024-01-02 17:52] LABS: Slide Review Reflex No
[2024-01-02 18:19] LABS: Chloride* 104 mmol/L (96-114)
[2024-01-02 18:20] LABS: Potassium* 3.6 mmol/L (3.6-5.1); Sodium* 139 mmol/L (135-149)
[2024-01-02 18:22] LABS: Creatinine* 0.8 mg/dL (0.5-1.5); Est. Creatinine Clearance* 57.84; Estimated Glomerular Filt Rate 85 ml/min
[2024-01-02 18:23] LABS: Anion Gap 12 mEq/L (7-15); Blood Urea Nitrogen* 19 mg/dL (7-30); Calcium* 9.5 mg/dL (8.4-10.6); Carbon Dioxide* 23 mmol/L (20-32); Glucose* 110 mg/dL (60-115)
[2024-01-02 18:26] LABS: C Reactive Protein* < 0.5 mg/dL (0.5-1.0)
== END 2024-01-02 18:55 | disposition home or self-care (01) ==
PROVIDERS: Emergency Provider Emergency Medicine; PCP Physician Assistant Medical
DX: N20.0 Calculus of kidney (principal)
CPT/HCPCS: 36415; 74176; 80048; 81001; 83605; 85025; 86140; 87086; 99284

== ENCOUNTER 2024-01-24 14:18 | Outpatient (CLI) | payer OTHER, SELFPAY ==
--- OUTSIDE RECORDS SUMMARY | 2024-01-28 11:41 | XMS_ITS | Clinical Summary ---
Author Organization [facility] Address [place], [place] [address] Care Team Providers Care [employer] Worker Name Role Phone [facility] Primary Care Provider Unavailabl e Allergies No [...] T Respiratory Rate 16 05/28/2010 5:15 PM [employer] Oxygen Saturation 95% 05/28/2010 5:15 PM [employer] Inhaled Oxygen Concentration - - Weight 66.3 [...] age 18+ 09/07/2017 09/07/2016 COVID-19 vaccine series (2023- season) 2023 Influenza for age 50-64 12/19/2023 Pneumococcal series for age 6-64 Aged Out No longer eligible b ased on patient's age to complete this topic Medical Devices Implanted Type Area Tank Erector Device Identifier Shelf Expiration Date Model / Serial / Lot Stent Prcflx [id number] Hydpls - [id number] Implanted:Qty: 1 on 08/19/2006 at [facility] Left: [facility]re[facility] [id number] / / [id number] Description:EXP Procedures Procedure Name Priority Date/Time Associated Diagnosis Comments LIPID PANEL Timed 01/02/2005 11:05 AM CDT GYNECOLOGICAL PANEL Timed 12/26/2004 1 2:00 PM CDT XR MAMMO BILATERAL DIAGNOSTIC (IA) Timed 10/19/2003 8:58 AM CDT RT BRST MASS from Last 3 Months or Most Recently Relevant to Health Maintenance Results * (ABNORMAL) LIPID PANEL (01/02/2005 11:05 AM CDT) CHOLESTEROL,TOTAL 179 110 - 199 mg/dL [facility] TRIGLYCERIDES 223(H) 40 - 149 mg/dL [facility] HDL CHOLESTEROL 34(L) >40 mg/dL [facility] CHOL/HDL RATIO 5.27(H) <4.51 [facility] LDL CHOLESTEROL 100 <131 mg/dL [facility] PATIENT STATUS Fasting [facility] 01/02/2005 11:0 5 AM CDT 01/02/2005 4:58 PM CDT Yoly Richey MD CHEMISTRY [facility] INTERNAL ZIP [id number] [address] * GYNECOLOGICAL PANEL (12/26/2004 12:00 PM CDT) CYTOLOGY ??CYTOPATHOLOGY REPORT ??[facility] [address] [address] ? Status: Final Report ?[id number] ?? CLINICAL INFORMATION ?Reason for Visit ?: [...] 12/26/04 ?? ACCESSIONED: 12/31/04 ?? SIGNED: 01/07/05 [facility] 12/26/2004 12:0 0 PM CDT 12/31/2004 4:23 PM CDT Yoly Richey MD PATHOLOGY/CY TOLOGY [facility] INTERNAL ZIP [address] [place] [address] * BC DIAGNOSTIC BILATERAL MAMMO (10/19/2003 8:58 [...] 11:46 AM 08/19/2006 7:47 PM Care Teams [employer] Work[employer] Relationship Specialty Start Date End Date Suhas Kwan PCP - General 07/26/17
== END 2024-01-24 14:19 | disposition home or self-care (01) ==
LOC: NFLDREF 01-28 11:33
PROVIDERS: PCP Physician Assistant Medical; Referring Provider Physician Assistant Medical; Visit Provider Physician Assistant Medical
DX: E11.9 Type 2 diabetes mellitus without complications (principal); R82.90 Unspecified abnormal findings in urine
CPT/HCPCS: 82043; 82570; 87086

== ENCOUNTER 2024-05-11 11:25 | Outpatient (CLI) | payer OTHER, SELFPAY | END 2024-05-11 11:26 | disposition home or self-care (01) | LOC: LKVREF 11:25 | PROVIDERS: PCP Physician Assistant Medical; Visit Provider Physician Assistant Medical | DX: E11.9 Type 2 diabetes mellitus without complications (principal); Z79.84 Long term (current) use of oral hypoglycemic drugs | CPT/HCPCS: 82043; 82570 ==

== ENCOUNTER 2024-07-31 14:27 | Outpatient (CLI) | payer OTHER, SELFPAY ==
--- NOTE | 2024-07-31 15:00 | CRLHL7_ITS ---
For Patients: As a result of the Century Cures Act, medical imaging exams and procedure reports are released immediately into your electronic medical record. You may view this report before your referring provider. If you have questions, please contact your health care provider. INDICATION: BILATERAL SCREENING MAMMOGRAM, ASYMPTOMATIC 59 YEAR OLD FEMALE COMPARISON: 01/07/23, 12/26/21, 11/15/20 TECHNIQUE: CC and MLO views were obtained. These mammographic images have been obtained using full-field digital technique. These mammographic images were interpreted with the benefit of computer aided detection and tomosynthesis. BREAST COMPOSITION: There are scattered areas of fibroglandular density. FINDINGS: No suspicious findings. ASSESSMENT: BI-RADS 1 Negative RECOMMENDATION: Annual screening mammogram. A lay language report of this examination will be provided to the patient. Dictated by: Sean Saha MD @ 08/09/2024 10:10:29 (Electronically Signed)
== END 2024-07-31 14:28 | disposition home or self-care (01) ==
LOC: MAMMO 14:27
PROVIDERS: PCP Physician Assistant Medical; Visit Provider Physician Assistant Medical
DX: Z12.31 Encounter for screening mammogram for malignant neoplasm of breast (principal)
CPT/HCPCS: 77063; 77067

== ENCOUNTER 2024-09-07 08:20 | Outpatient (CLI) | payer OTHER, SELFPAY | END 2024-09-07 08:21 | disposition home or self-care (01) | PROVIDERS: PCP Physician Assistant Medical; Visit Provider Physician Assistant Medical | DX: Z00.01 Encounter for general adult medical examination with abnormal findings (principal); E78.2 Mixed hyperlipidemia; E11.9 Type 2 diabetes mellitus without complications; Z86.39 Personal history of other endocrine, nutritional and metabolic disease; Z13.29 Encounter for screening for other suspected endocrine disorder; Z13.21 Encounter for screening for nutritional disorder | CPT/HCPCS: 80053; 80061; 82306; 82607; 84443 ==